=== PATIENT | female | born 1930 | race Hispanic/Latino ===

== ENCOUNTER 2016-07-23 12:52 | Inpatient (IN) | payer OTHER, MEDICAID ==
[~2016-07-23] VITALS: Ht 144.8 cm; Wt 65.6 kg
[2016-07-23] MEDS ORDERED: FISH OIL 1,0001 EAC6 PO (13:30)
[2016-07-23] MEDS ORDERED: ESSENTIAL WOMA1 EAC1 PO (13:30)
[2016-07-23] MEDS ORDERED: LO-DOSE ASPIRIN81 M2 PO (13:30)
[2016-07-23 13:58] LABS: EOSINOPHIL (%) 2.8 % (0-5); EOSINOPHIL COUNT 0.2 K/uL (0-0.3); HEMATOCRIT 38.9 % (36.0-46.0); IMMATURE GRANULOCYTE (%) 0.3 % (0.0-0.7); INSTRUMENT ABS NEUTROPHIL CT 3.6 K/uL; LYMPHOCYTE COUNT 1.6 K/uL (1.0-2.8); MCHC 33.9 G/DL (30.0-36.0); MCV 82.6 FL (83-99); MEAN PLAT.VOLUME 11.6 uM^3 (9.5-12.4); MONOCYTE (%) 7.9 % (3-12); MONOCYTE COUNT 0.5 K/uL (0-0.8); NEUTROPHIL (%) 61.4 % (45-76); NEUTROPHIL COUNT 3.6 K/uL (1.8-6.4); PLATELET COUNT 196 K/uL (156-360); RBC DIS.WIDTH-CV 13.2 % (11.8-14.6); RBC DIS.WIDTH-SD 39.5 % (39-53); RED BLOOD COUNT 4.71 M/uL (3.80-5.20); WHITE BLOOD COUNT 5.8 K/uL (4.1-10.2)
[2016-07-23 14:10] LABS: CHLORIDE 108 mEq/L (99-109); POTASSIUM 3.8 mEq/L (3.7-5.4); SODIUM 143 mEq/L (136-147)
[2016-07-23 14:12] LABS: GLUCOSE 104 mg/dL (70-99)
[2016-07-23 14:14] LABS: ANION GAP 9 MEQ/L (2-14); TOTAL BILIRUBIN 1.1 mg/dL (0.0-1.0)
[2016-07-23 14:16] LABS: ALKALINE PHOSPHATASE 64 IU/L (3-129); GFR ESTIMATE (CALCULATED) > 59 mL/min/
[2016-07-23 14:17] LABS: UREA NITROGEN (BUN) 13 mg/dL (9-23)
[2016-07-23 14:20] LABS: TROP-I INTERPRETATION NEGATIVE; TROPONIN-I 0.02 ng/mL (0.0-0.30)
[2016-07-23 15:44] LABS: ADD MIUA? NO; BILIRUBIN NEGATIVE; BLOOD NEGATIVE; COLOR YELLOW ((YELLOW)); GLUCOSE (STRIP) NEGATIVE; KETONES NEGATIVE; LEUKOCYTES NEGATIVE; NITRITE NEGATIVE; PROTEIN (STRIP) NEGATIVE; SPECIFIC GRAVITY 1.014 (1.000-1.030); UROBILINOGEN 0.2 MG/DL (0.2-1.0)
[2016-07-23 16:40] VITALS: BP 211/93
[2016-07-23 20:00] VITALS: BP 151/69
[2016-07-23 20:25] LABS: TROP-I INTERPRETATION NEGATIVE; TROPONIN-I 0.01 ng/mL (0.0-0.30)
[2016-07-24] VITALS (9 sets, daily range): BP systolic 137–203; BP diastolic 63–90
[2016-07-24 03:44] LABS: TROP-I INTERPRETATION NEGATIVE; TROPONIN-I 0.02 ng/mL (0.0-0.30)
[2016-07-25 04:04] VITALS: BP 121/63
[2016-07-25 07:19] VITALS: BP 163/73
[2016-07-25] MEDS ORDERED: LIPITOR40 MG PO (08:43)
[2016-07-25] MEDS ORDERED: LISINOPRIL10 MG PO (08:43)
[2016-07-25] MEDS ORDERED: ANTIVERT12.5 MG PO (08:43)
[2016-07-25] MEDS ORDERED: AMLODIPINE BESYL5 MG PO (08:43)
[2016-07-25 11:07] VITALS: BP 169/79
== END 2016-07-25 13:15 | disposition home health service (06) | DRG 149 ==
LOC: EME 12:52 → EDOF 15:18 → 5WEST 15:18 → 5SOUTH 07-24 18:06
PROVIDERS: Internal Medicine; Physician Assistant
DX: H81.10 Benign paroxysmal vertigo, unspecified ear (principal); I10 Essential (primary) hypertension; H91.93 Unspecified hearing loss, bilateral
CPT/HCPCS: 70450; 71010; 80053; 81003; 84484; 85025; 93005; 93306; 93880; 99281; 99285; G0378; J1650

== ENCOUNTER 2017-07-28 15:20 | Emergency (ER) | payer OTHER ==
[~2017-07-28] VITALS: Ht 149.9 cm; Wt 64.7 kg
[~2017-07-28 15:20] MED LIST: AMLODIPINE BESYL5 MG PO; ANTIVERT12.5 MG PO; ESSENTIAL WOMA1 EAC1 PO; FISH OIL 1,0001 EAC6 PO; LIPITOR40 MG PO; LISINOPRIL10 MG PO; LO-DOSE ASPIRIN81 M2 PO
[2017-07-28] MEDS ORDERED: PEPCID20 MG PO (15:45)
[2017-07-28] MEDS ORDERED: DELTASONE20 M1 PO (15:45)
[2017-07-28] MEDS ORDERED: ATARAX,VISTARIL25 MG PO (15:46)
[2017-07-28 15:55] VITALS: BP 146/82
== END 2017-07-28 16:04 | disposition home or self-care (01) ==
LOC: EME 15:20
DX: L50.0 Allergic urticaria (principal); R06.02 Shortness of breath; Z79.82 Long term (current) use of aspirin; Z88.0 Allergy status to penicillin
CPT/HCPCS: 99281; 99284; J7512